=== PATIENT | male | born 1990 | race Caucasian/White ===

== ENCOUNTER → 2017-03-20 | Outpatient (CLI) | payer BC ==
[~2017-03-20] MED LIST: NORCO 325 MG-51 TAB PO
== END ==
LOC: COL.RAD 09:13
DX: R10.11 Right upper quadrant pain (principal)

== ENCOUNTER → 2017-03-26 | Outpatient (CLI) | payer BC | LOC: COL.RAD 07:50 | DX: R10.11 Right upper quadrant pain (principal) | CPT/HCPCS: A9537 ==